=== PATIENT | male | born 1955 | race Caucasian/White ===

== ENCOUNTER 2017-07-02 12:17 | Observation (INO) | payer BC, OTHER ==
[2017-07-02] MEDS: ASPIRIN 325 MG TABLET PO ONE ×2 (12:50→12:55)
[2017-07-02] MEDS ORDERED: NITROGLYCERIN SUBLINGUAL 1/150 0.4 MG TAB SL ONE (12:50)
[2017-07-02] MEDS ORDERED: NITROGLYCERIN SUBLINGUAL 1/150 0.4 MG TAB ONE (12:51)
[2017-07-02] MEDS ORDERED: ASPIRIN 81 MG CHEWABLE TABLETS ONE (12:51)
[2017-07-02] MEDS: NITROGLYCERIN SUBLINGUAL 1/200 0.3 MG BTL SL ONE ×2 (12:55→13:04)
--- NOTE | 2017-07-02 12:59 | PDOC ---
History of Present Illness - General Chief Complaint: Chest Pain Stated Complaint: CHEST TIGHTNESS AND ELEVATED BLOOD PRESSURE Time Seen by Provider: 07/02/17 12:21 - History of Present Illness Initial Comments: 07/02/17 12:59 61 M with h/o DM, HTN, presenting to ER with chest pressure and SOB that began this morning. Pt reports taking his daily medications upon waking up and shortly afterwards began to feel pressure in his chest. He lied down, thinking it would pass, but the pressure persisted. He endorses SOB associated with the chest pressure as well. Denies orthopnea. Denies leg swelling. Pt denies F/C/ cough. No recent travel/immobilization. Pt reports +FH of ID (brother in 60s of ID). He has not had any recent cardiac work up. Last stress test was years ago. Past History - Past Medical History Allergies/Adverse Reactions: Allergies Allergy/AdvReac Type Severity Reaction Status Date / Time Penicillins Allergy Unknown Verified 07/02/17 12:19 Home Medications: Ambulatory Orders Amlodipine Besylate [Norvasc -] 10 mg PO DAILY 09/27/13 Glipizide 5 mg PO DAILY 09/27/13 Ramipril [Altace] 10 mg PO DAILY 09/27/13 Labetalol HCl 200 mg PO DAILY 07/02/17 Anemia: No Asthma: No Cancer: No Cardiac Disorders: No CVA: No COPD: No CHF: No DVT: No Dementia: No Diabetes: Yes GI Disorders: No Disorders: No HTN: Yes Hypercholesterolemia: Yes Kidney Stones: Yes Liver Disease: No Seizures: No Thyroid Disease: No - Surgical History Abdominal Surgery: Yes (VENTRAL HERNIA) Appendectomy: No Cardiac Surgery: No Cholecystectomy: No Lung Surgery: No Neurologic Surgery: No Orthopedic Surgery: No - Suicide/Smoking/Psychosocial Hx Smoking History: Former smoker Have you smoked in the past 12 months: No If you are a former smoker, when did you quit?: 25 years ago Information on smoking cessation initiated: No Hx Alcohol Use: Yes (occasional) Drug/Substance Use Hx: No Substance Use Type: None Cardiac Specific PMH - Complaint Specific PMHX Pacemaker: No Review of Systems - Review of Systems Comments:: 07/02/17 13:01 "GENERAL/CONSTITUTIONAL: No fever or chills. No weakness. HEAD, EYES, EARS, NOSE AND THROAT: No change in vision. No ear pain or discharge. No sore throat. CARDIOVASCULAR: +CP + SOB RESPIRATORY: No cough, wheezing, or hemoptysis. GASTROINTESTINAL: No nausea, vomiting, diarrhea or constipation. GENITOURINARY: No dysuria, frequency, or change in urination. MUSCULOSKELETAL: No joint or muscle swelling or pain. No neck or back pain. SKIN: No rash NEUROLOGIC: No headache, vertigo, loss of consciousness, or change in strength/ sensation. ENDOCRINE: No increased thirst. No abnormal weight change. HEMATOLOGIC/LYMPHATIC: No anemia, easy bleeding, or history of blood clots. ALLERGIC/IMMUNOLOGIC: No hives or skin allergy. " *Physical Exam - Vital Signs Last Vital Signs Temp Pulse Resp BP Pulse Ox 98.4 F 87 18 146/72 97 07/03/17 14:00 07/03/17 16:00 07/03/17 16:00 07/03/17 14:00 07/03/17 15:00 - Physical Exam Comments: 07/02/17 13:01 "GENERAL: Awake, alert, and fully oriented, in no acute distress HEAD: No signs of trauma EYES: PERRLA, EOMI, sclera anicteric, conjunctiva clear ENT: Auricles normal inspection, hearing grossly normal, nares patent, oropharynx clear without exudates. Moist mucosa NECK: Nontender, no stepoffs, Normal ROM, supple, no lymphadenopathy, JVD, or masses LUNGS: Breath sounds equal, clear to auscultation bilaterally. No wheezes, and no crackles HEART: Regular rate and rhythm, normal S1 and S2, no murmurs, rubs or gallops ABDOMEN: Soft, nontender, normoactive bowel sounds. No guarding, no rebound. No masses EXTREMITIES: Normal range of motion, no edema. No clubbing or cyanosis. No cords, erythema, or tenderness NEUROLOGICAL: Cranial nerves II through XII intact. 5/5 strength and sensation in all extremities, Normal speech, normal gait SKIN: Warm, Dry, normal turgor, no rashes or lesions noted. " Heart Score/ECG Review - History History: Moderately suspicious - Electrocardiogram EKG: Normal - Age Age: 45-65 - Risk Factors Risk Factors Heart Score: Yes Hx Hypertension, Yes Hx Diabetes, Yes Positive family hx of cardiac disease Based on the list above the patient has:: >/=3 risk factors or Hx atherosclerotic disease - Troponin Troponin: </= normal limit - Score Heart Score - Total: 4 - ECG Impressions Comment:: 07/02/17 13:02 NSR, no TOMÁS/STDs, no TWIs, axis wnl, intervals wnl, rate 108 ED Treatment Course - LABORATORY CBC & Chemistry Diagram: 07/03/17 07:32 07/03/17 07:32 - ADDITIONAL ORDERS Additional order review: 07/02/17 12:50 RBC 4.88 MCV 91.6 MCHC 33.4 RDW 14.6 MPV 8.5 D Neutrophils % 78.7 Lymphocytes % 16.3 Monocytes % 3.4 L Eosinophils % 0.8 Basophils % 0.8 - RADIOLOGY Radiology Studies Ordered: Category Date Time Status CHEST X-RAY PORTABLE* [RAD] Stat Radiology 07/02/17 12:57 Completed - Medications Given in the ED: ED Medications Discontinued Medications Generic Name Dose Route Start Last Admin Trade Name Freq PRN Reason Stop Dose Admin Acetaminophen 650 mg 07/02/17 18:10 07/03/17 06:32 Tylenol - PO 650 mg Q4H PRN Administration PAIN Amlodipine Besylate 5 mg 07/03/17 10:00 07/03/17 09:58 Norvasc - PO 5 mg DAILY ADELE Administration Aspirin 325 mg 07/02/17 12:46 07/02/17 12:55 Asa - PO 07/02/17 12:47 325 mg ONCE ONE Administration Insulin Aspart 1 vial 07/02/17 16:30 07/03/17 13:25 Novolog Vial Sliding Scale - SQ 4 unit ACHS ADELE Administration Protocol Labetalol HCl 100 mg 07/03/17 10:00 07/03/17 09:58 Normodyne - PO 100 mg DAILY ADELE Administration Lisinopril 40 mg 07/03/17 10:00 07/03/17 09:57 Prinivil PO 40 mg DAILY ADELE Administration Nitroglycerin 0.3 mg 07/02/17 12:47 07/02/17 13:04 Nitrostat - SL 07/02/17 12:48 Not Given ONCE ONE Nitroglycerin 0.4 mg 07/02/17 12:50 07/02/17 12:55 Nitrostat - SL 07/02/17 12:51 0.4 mg ONCE ONE Administration Regadenoson 0.4 mg 07/03/17 10:15 07/03/17 13:07 Lexiscan IVPUSH 07/03/17 10:16 Not Given ONCE ONE Medical Decision Making - Medical Decision Making 07/02/17 13:02 61 M with DM, HTN, family history of ID, presenting with CP and SOB. Concerning for ACS, though EKG with no ischemic changes. Also consider infectious process. Pt without clinical s/s of DVT. - Labs, trop, BNP - CXR - Aspirin 07/02/17 14:53 First trop negative. Spoke with pt and daughter. 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 Given risk factors and family history, will admit for serial troponins and cards consult. Case discussed in detail with admitting physician including history, physical exam and ancillary studies. Admitting physician has assumed care for the patient and will follow all pending diagnostics and complete the evaluation and treatment. *DC/Admit/Observation/Transfer Diagnosis at time of Disposition: Chest pain - Discharge Dispostion Disposition: HOME Condition at time of disposition: Stable Admit: Yes - Referrals - Patient Instructions - Post Discharge Activity - Attestations Physician Attestion: 07/02/17 15:35 I, Dr. Tommy Soler MD, attest that this document has been prepared under my direction and personally reviewed by me in its entirety. I further attest, that it accurately reflects all work, treatment, procedures and medical decision -making performed by me.
[2017-07-02 13:31] LABS: BASO % 0.8 % (0-2.0); EOS % 0.8 % (0-4.5); HEMATOCRIT 44.8 % (35.4-49); HEMOGLOBIN 14.9 GM/dl (11.7-16.9); LYMPH % 16.3 % (8-40); MCH 30.6 pg (25.7-33.7); MCHC 33.4 g/dl (32.0-35.9); MEAN CELL VOLUME 91.6 fl (80-96); MEAN PLT VOLUME 8.5 fl (7.5-11.1); MONO % 3.4 % (3.8-10.2); NEUT % 78.7 % (42.8-82.8); PLATELET COUNT 140 K/MM3 (134-434); RBC 4.88 M/mm3 (4.00-5.60); RDW 14.6 % (11.9-15.9)
[2017-07-02 13:37] LABS: ACTIVATED PTT 25.2 SECONDS (24.0-38.9)
[2017-07-02 13:38] LABS: ALBUMIN 4.5 g/dl (3.5-5.0); ALK PHOS 65 U/L (32-92); ANION GAP 11 (8-16); BILIRUBIN,TOTAL 0.8 mg/dl (0.2-1.0); BLOOD UREA NITROGEN 15 mg/dl (7-18); CHLORIDE 97 mmol/L (98-107); CO2 24 mmol/L (22-28); CREATININE 0.8 mg/dl (0.6-1.3); GLUCOSE,RANDOM 221 mg/dl (74-106); POTASSIUM 3.9 mmol/L (3.5-5.1); SGOT/AST 24 U/L (10-42); SGPT/ALT 17 U/L (10-40); SODIUM 132 mmol/L (136-145); TOT PROT 7.7 g/dl (6.4-8.3)
[2017-07-02 13:42] LABS: INR 1.1 (0.82-1.09); PROTHROMBIN TIME (PATIENT) 12.3 SEC (10.2-13.0)
--- NOTE | 2017-07-02 15:01 | EKG ---
Test Reason : Blood Pressure : / mmHG Vent. Rate : 108 BPM Atrial Rate : 108 BPM P-R Int : 180 ms QRS Dur : 088 ms QT Int : 356 ms P-R-T Axes : -01 027 -03 degrees QTc Int : 477 ms SINUS TACHYCARDIA OTHERWISE NORMAL ECG WHEN COMPARED WITH ECG OF 25-FEB-2014 18:46, NO SIGNIFICANT CHANGE WAS FOUND Confirmed by MADELYN NORWOOD MD ([id number]) on 07/02/2017 3:01:09 PM Referred By: AYALA GRANADOS Confirmed By:MADELYN NORWOOD MD
--- NOTE | 2017-07-02 15:27 | HP ---
CHIEF COMPLAINT: PCP: HISTORY OF PRESENT ILLNESS: ER course was notable for: (1) (2) (3) Recent Travel: PAST MEDICAL HISTORY: PAST SURGICAL HISTORY: Social History: Smoking: Alcohol: Drugs: Family History: Allergies Penicillins Allergy (Unknown, Verified 07/02/17 12:19) HOME MEDICATIONS: Home Medications Medication Instructions Recorded Amlodipine Besylate [Norvasc -] 5 mg PO DAILY 09/27/13 Glipizide 5 mg PO DAILY 09/27/13 Ramipril [Altace] 10 mg PO DAILY 09/27/13 Labetalol HCl 0 mg PO DAILY 07/02/17 REVIEW OF SYSTEMS CONSTITUTIONAL: Absent: fever, chills, diaphoresis, generalized weakness, malaise, loss of appetite, weight change HEENT: Absent: rhinorrhea, nasal congestion, throat pain, throat swelling, difficulty swallowing, mouth swelling, ear pain, eye pain, visual changes CARDIOVASCULAR: Absent: chest pain, syncope, palpitations, irregular heart rate, lightheadedness , peripheral edema RESPIRATORY: Absent: cough, shortness of breath, dyspnea with exertion, orthopnea, wheezing, stridor, hemoptysis GASTROINTESTINAL: Absent: abdominal pain, abdominal distension, nausea, vomiting, diarrhea, constipation, melena, hematochezia GENITOURINARY: Absent: dysuria, frequency, urgency, hesitancy, hematuria, flank pain, genital pain MUSCULOSKELETAL: Absent: myalgia, arthralgia, joint swelling, back pain, neck pain SKIN: Absent: rash, itching, pallor HEMATOLOGIC/IMMUNOLOGIC: Absent: easy bleeding, easy bruising, lymphadenopathy, frequent infections ENDOCRINE: Absent: unexplained weight gain, unexplained weight loss, heat intolerance, cold intolerance NEUROLOGIC: Absent: headache, focal weakness or paresthesias, dizziness, unsteady gait, seizure, mental status changes, bladder or bowel incontinence PSYCHIATRIC: Absent: anxiety, depression, suicidal or homicidal ideation, hallucinations. PHYSICAL EXAMINATION Vital Signs - 24 hr 07/02/17 07/02/17 07/02/17 12:18 13:04 14:49 Temperature 98 F Pulse Rate 111 H Pulse Rate [ 111 H 101 H Apical] Respiratory 16 17 18 Rate Blood Pressure 176/102 Blood Pressure 136/89 140/82 [Arm] O2 Sat by Pulse 98 96 98 Oximetry (%) GENERAL: Awake, alert, and fully oriented, in no acute distress. HEAD: Normal with no signs of trauma. EYES: Pupils equal, round and reactive to light, extraocular movements intact, sclera anicteric, conjunctiva clear. No lid lag. EARS, NOSE, THROAT: Ears normal, nares patent, oropharynx clear without exudates. Moist mucous membranes. NECK: Normal range of motion, supple without lymphadenopathy, JVD, or masses. LUNGS: Breath sounds equal, clear to auscultation bilaterally. No wheezes, and no crackles. No accessory muscle use. HEART: Regular rate and rhythm, normal S1 and S2 without murmur, rub or gallop. ABDOMEN: Soft, nontender, not distended, normoactive bowel sounds, no guarding, no rebound, no masses. No hepatomegaly or splenomegaly. MUSCULOSKELETAL: Normal range of motion at all joints. No bony deformities or tenderness. No CVA tenderness. UPPER EXTREMITIES: 2+ pulses, warm, well-perfused. No cyanosis. No clubbing. No peripheral edema. LOWER EXTREMITIES: 2+ pulses, warm, well-perfused. No calf tenderness. No peripheral edema. NEUROLOGICAL: Cranial nerves II-XII intact. Normal speech. Normal gait. PSYCHIATRIC: Cooperative. Good eye contact. Appropriate mood and affect. SKIN: Warm, dry, normal turgor, no rashes or lesions noted, normal capillary refill. Laboratory Results - last 24 hr 07/02/17 07/02/17 07/02/17 12:50 12:50 13:04 WBC 5.0 RBC 4.88 Hgb 14.9 Hct 44.8 MCV 91.6 MCH 30.6 MCHC 33.4 RDW 14.6 Plt Count 140 MPV 8.5 D Neutrophils % 78.7 Lymphocytes % 16.3 Monocytes % 3.4 L Eosinophils % 0.8 Basophils % 0.8 PT with INR 12.3 INR 1.10 PTT (Actin FS) 25.2 L Sodium Potassium Chloride Carbon Dioxide Anion Gap BUN Creatinine Creat Clearance w eGFR Random Glucose Calcium Total Bilirubin AST ALT Alkaline Phosphatase Creatine Kinase Troponin I < 0.03 L Total Protein Albumin 07/02/17 13:04 WBC RBC Hgb Hct MCV MCH MCHC RDW Plt Count MPV Neutrophils % Lymphocytes % Monocytes % Eosinophils % Basophils % PT with INR INR PTT (Actin FS) Sodium 132 L Potassium 3.9 Chloride 97 L Carbon Dioxide 24 D Anion Gap 11 BUN 15 D Creatinine 0.8 Creat Clearance w eGFR > 60 Random Glucose 221 H D Calcium 9.0 Total Bilirubin 0.8 D AST 24 D ALT 17 D Alkaline Phosphatase 65 Creatine Kinase 122 Troponin I Total Protein 7.7 Albumin 4.5 ASSESSMENT/PLAN:
[2017-07-02] MEDS: INSULIN SLIDING SCALE (NOVOLOG) 1 VIAL SQ SCH ×2 (17:16→23:25)
--- NOTE | 2017-07-02 18:07 | HP ---
Admitting History and Physical - Primary Care Physician PCP: Mane Andrew - Admission Chief Complaint: chest pain, sob History of Present Illness: This is a 61 year old male with pmhx of htn, hld who presented to the ED with worsening chest pressure and sob. 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 He reported lightheadedness and the beginning of left sided chest pressure. This morning around 7am the patient woke up he brushed his teeth and started to take his morning meds when the chest pressure worsened. He felt like something was pressing into his chest and radiating down his L arm and causing shortness of breath. This prompted him to drive himself to the ED. In the past he felt this pain and associated it with acid or gas pain. He stopped smoking 26years ago. Recent cataract surgery He denies trauma or excessive exercise. 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 He has been drinking vodka for ~30 years on and off 3-4 glasses, his last drink was last night, 2 glasses. He has never seen a rn surgery. He had echo awhile ago and was told it was unremarkable. History Source: Patient Limitations to Obtaining History: No Limitations - Past Medical History Cardiovascular: Yes: HTN Endocrine: Yes: Diabetes Mellitus - Past Surgical History Past Surgical History: Yes: Hernia Repair - Smoking History Smoking history: Former smoker Have you smoked in the past 12 months: No If you are a former smoker, when did you quit?: 25 years ago - Alcohol/Substance Use Hx Alcohol Use: Yes (occasional) History of Substance Use: reports: None - Social History Usual Living Arrangement: Yes: Alone ADL: Independent Occupation: [employer] Home Medications - Allergies Allergies/Adverse Reactions: Allergies Allergy/AdvReac Type Severity Reaction Status Date / Time Penicillins Allergy Unknown Verified 07/02/17 12:19 - Home Medications Home Medications: Ambulatory Orders Amlodipine Besylate [Norvasc -] 10 mg PO DAILY 09/27/13 Glipizide 5 mg PO DAILY 09/27/13 Ramipril [Altace] 10 mg PO DAILY 09/27/13 Labetalol HCl 200 mg PO DAILY 07/02/17 Family Disease History - Family Disease History Family Disease History: Heart Disease: Mother (mi, cABG), CA: Father (lung ) Review of Systems - Review of Systems Constitutional: reports: Diaphoresis Eyes: reports: No Symptoms HENT: reports: No Symptoms Neck: reports: No Symptoms Cardiovascular: reports: Chest Pain, Shortness of Breath Respiratory: reports: SOB Gastrointestinal: reports: No Symptoms Genitourinary: reports: No Symptoms Musculoskeletal: reports: No Symptoms Integumentary: reports: No Symptoms Neurological: reports: No Symptoms Endocrine: reports: No Symptoms Hematology/Lymphatic: reports: No Symptoms Psychiatric: reports: No Symptoms Physical Examination Vital Signs: Vital Signs Temperature 98.4 F 07/02/17 17:02 Pulse Rate 101 H 07/02/17 17:02 Respiratory Rate 20 07/02/17 17:02 Blood Pressure 162/86 07/02/17 17:02 O2 Sat by Pulse Oximetry (%) 97 07/02/17 17:02 Constitutional: Yes: Well Nourished Eyes: Yes: Conjunctiva Clear HENT: Yes: WNL Neck: Yes: Supple Cardiovascular: Yes: Regular Rate and Rhythm, S1, S2 Respiratory: Yes: Regular, CTA Bilaterally Gastrointestinal: Yes: Normal Bowel Sounds, Soft Renal/: Yes: WNL Breast(s): Yes: WNL Musculoskeletal: Yes: WNL Extremities: Yes: WNL Edema: No Wound/Incision: Yes: Well Approximated Neurological: Yes: Alert, Oriented, Cran Nerves II-XII Intact Psychiatric: Yes: Alert, Oriented Labs: CBC, BMP 07/02/17 12:50 07/02/17 13:04 Imaging - Results X-ray: Report Reviewed EKG: Report Reviewed Problem List - Problems (1) Chest pain Code(s): R07.9 - CHEST PAIN, UNSPECIFIED Assessment/Plan Assessment: 61 year old male admitted with chest pain Plan: 1. Chest pain - ASA 325mg given in ED - Serial cardiac enzymes - ECHO - NPO for possible stress in AM - Telemetry monitoring - Cardiology consult 2. HTN - Continue amlodipine - Continue lisinopril - Continue labetaolol 3. DM II - ISS, BGM ACHS Dispo: Daughter [phone], Helen Visit type - Emergency Visit Emergency Visit: Yes ED Registration Date: 07/02/17 Care time: The patient presented to the Emergency Department on the above date and was hospitalized for further evaluation of their emergent condition. - New Patient This patient is new to me today: Yes Date on this admission: 07/03/17 - Critical Care Critical Care patient: No
[2017-07-02 18:17] VITALS: BMI 32.3
[2017-07-02] MEDS: ACETAMINOPHEN 325 MG TABLET (FP) PO PRN (18:54)
[2017-07-03] MEDS: INSULIN SLIDING SCALE (NOVOLOG) 1 VIAL SQ SCH ×2 (06:30→13:25)
[2017-07-03] MEDS: ACETAMINOPHEN 325 MG TABLET (FP) PO PRN (06:32)
[2017-07-03 08:36] LABS: BASO % 0.8 % (0-2.0); EOS % 2.6 % (0-4.5); HEMATOCRIT 45.2 % (35.4-49); HEMOGLOBIN 15.3 GM/dl (11.7-16.9); LYMPH % 28.9 % (8-40); MCHC 33.8 g/dl (32.0-35.9); MEAN CELL VOLUME 91.5 fl (80-96); MEAN PLT VOLUME 7.9 fl (7.5-11.1); MONO % 10.1 % (3.8-10.2); NEUT % 57.6 % (42.8-82.8); PLATELET COUNT 137 K/MM3 (134-434); RBC 4.94 M/mm3 (4.00-5.60); WHITE BLOOD COUNT 4.2 K/mm3 (4.0-10.8)
[2017-07-03 08:39] LABS: ALBUMIN 4.4 g/dl (3.5-5.0); ALK PHOS 62 U/L (32-92); ANION GAP 10 (8-16); BILIRUBIN,TOTAL 1.6 mg/dl (0.2-1.0); BLOOD UREA NITROGEN 17 mg/dl (7-18); CALCIUM 9.1 mg/dl (8.4-10.2); CHLORIDE 95 mmol/L (98-107); CO2 29 mmol/L (22-28); CREATININE 0.9 mg/dl (0.6-1.3); GLUCOSE,RANDOM 109 mg/dl (74-106); MAGNESIUM 1.8 mg/dL (1.8-2.4); POTASSIUM 3.6 mmol/L (3.5-5.1); SGOT/AST 19 U/L (10-42); SGPT/ALT 12 U/L (10-40); SODIUM 134 mmol/L (136-145); TOT PROT 7.4 g/dl (6.4-8.3)
[2017-07-03 08:45] LABS: CHOLESTEROL 264 mg/dl; HDL CHOLESTEROL 126 mg/dl (29-89); LDL CHOLESTEROL (ONLY DFH) 112 mg/dl; TRIGLYCERIDES 132 mg/dl (35-160)
[2017-07-03] MEDS ORDERED: LABETALOL HCL 100 MG TABLET (FP) PO SCH (10:00)
[2017-07-03] MEDS ORDERED: LISINOPRIL 20 MG TABLET (FP) PO SCH (10:00)
[2017-07-03] MEDS ORDERED: amLODIPine BESYLATE 5 MG TABLET (FP) PO SCH (10:00)
[2017-07-03] MEDS ORDERED: REGADENOSON 0.4 MG/5 ML PRE-FILLED SYRINGE IVPUSH ONE (10:15)
[2017-07-03] MEDS ORDERED: INSULIN (NOVOLOG) ASPART 100 UNITS/ML 10ML VIAL ONE (13:23)
--- NOTE | 2017-07-03 13:25 | CON.CARD ---
Cardiology Consult (text) - Consultation Consultation Note: cc: cp hpi: 61 m hx htn, dm here with cp. Yesterday was at rest and noticed mild central chest pressure with some radiation to left arm. Intermittent during the day. No sob, palps, dizzy, loc, pnd, orthopnea, le edema, anginal sxs. No hx hrt dz. Feeling better this AM, no further cp. pmh: per hpi psh: cataracts, hernia social: ex tob fam: bro mi 60s ros: per hpi; no nvd, fever, cough, muscle pain, mejia, vision changes, gib, hematuria, dysuria meds: Home Medications Medication Instructions Recorded Amlodipine Besylate [Norvasc -] 10 mg PO DAILY 09/27/13 Glipizide 5 mg PO DAILY 09/27/13 Ramipril [Altace] 10 mg PO DAILY 09/27/13 Labetalol HCl 200 mg PO DAILY 07/02/17 pe: Vital Signs Period Temp Pulse Resp BP Sys/Vega Pulse Ox Last 24 Hr 97.9 F-98.6 F 86-104 16-20 140-172/82-94 96-99 nad no jvd rrr s1s2 no mrg cta bl nl eff aaox3 no le e/c/c abd nt nd pos bs no jaundice diaphoresis pos dp pt no carotid bruits Laboratory Last Values WBC 4.2 K/mm3 (4.0-10.8) 07/03/17 07:32 RBC 4.94 M/mm3 (4.00-5.60) 07/03/17 07:32 Hgb 15.3 GM/dl (11.7-16.9) 07/03/17 07:32 Hct 45.2 % (35.4-49) 07/03/17 07:32 MCV 91.5 fl (80-96) 07/03/17 07:32 MCH 31.0 pg (25.7-33.7) 07/03/17 07:32 MCHC 33.8 g/dl (32.0-35.9) 07/03/17 07:32 RDW 14.0 % (11.9-15.9) 07/03/17 07:32 Plt Count 137 K/MM3 (134-434) 07/03/17 07:32 MPV 7.9 fl (7.5-11.1) 07/03/17 07:32 Neutrophils % 57.6 % (42.8-82.8) D 07/03/17 07:32 Lymphocytes % 28.9 % (8-40) D 07/03/17 07:32 Monocytes % 10.1 % (3.8-10.2) D 07/03/17 07:32 Eosinophils % 2.6 % (0-4.5) D 07/03/17 07:32 Basophils % 0.8 % (0-2.0) 07/03/17 07:32 PT with INR 12.3 SEC (10.2-13.0) 07/02/17 13:04 INR 1.10 (0.82-1.09) 07/02/17 13:04 PTT (Actin FS) 25.2 SECONDS (24.0-38.9) L 07/02/17 13:04 Sodium 134 mmol/L (136-145) L 07/03/17 07:32 Potassium 3.6 mmol/L (3.5-5.1) 07/03/17 07:32 Chloride 95 mmol/L (98-107) L 07/03/17 07:32 Carbon Dioxide 29 mmol/L (22-28) H D 07/03/17 07:32 Anion Gap 10 (8-16) 07/03/17 07:32 BUN 17 mg/dl (7-18) 07/03/17 07:32 Creatinine 0.9 mg/dl (0.6-1.3) 07/03/17 07:32 Creat Clearance w eGFR > 60 (>60) 07/03/17 07:32 POC Glucometer 94 UNITS (80-120) 07/03/17 06:29 Random Glucose 109 mg/dl (74-106) H D 07/03/17 07:32 Calcium 9.1 mg/dl (8.4-10.2) 07/03/17 07:32 Magnesium 1.8 mg/dL (1.8-2.4) 07/03/17 07:32 Total Bilirubin 1.6 mg/dl (0.2-1.0) H D 07/03/17 07:32 AST 19 U/L (10-42) D 07/03/17 07:32 ALT 12 U/L (10-40) D 07/03/17 07:32 Alkaline Phosphatase 62 U/L (32-92) 07/03/17 07:32 Creatine Kinase 122 IU/L (39-308) 07/02/17 13:04 Troponin I < 0.02 ng/ml (0.00-0.05) 07/03/17 01:20 B-Natriuretic Peptide 62.11 pg/ml (5-125) 07/02/17 13:04 Total Protein 7.4 g/dl (6.4-8.3) 07/03/17 07:32 Albumin 4.4 g/dl (3.5-5.0) 07/03/17 07:32 Triglycerides 132 mg/dl (35-160) 07/03/17 07:32 Cholesterol 264 mg/dl 07/03/17 07:32 Total LDL Cholesterol 112 mg/dl 07/03/17 07:32 HDL Cholesterol 126 mg/dl (29-89) H 07/03/17 07:32 cxr: clear lungs ecg: sr, nl intervals, no ischemic changes echo 06/2017: nl lv/rv, no sig valve path, nl rvsp a/p: 61 m hx htn, dm here with cp. cp: -resolved -trop negx3, ecg and echo unremarkable, does not appear to be acs -given risk factors, will send for mibi today. htn: -cont home meds dm: -cont home po meds. if nuclear stress test benign then ok for dc today from cardiac pov.
[2017-07-03 14:12] VITALS: BP 146/72; TEMP 98.4
[2017-07-03 15:50] LABS: INR 1.04 (0.82-1.09); PROTHROMBIN TIME (PATIENT) 11.6 SEC (10.2-13.0)
[2017-07-03 16:14] VITALS: PULSE 87
== END 2017-07-03 16:12 | disposition home or self-care (01) ==
LOC: FER 12:17 → FM/S 16:16
PROVIDERS: ADMIT Internal Medicine; ATTEND Nurse Practitioner Acute Care
PROC: 3E013VG Introduction of Insulin into Subcutaneous Tissue, Percutaneous Approach (ICD-10-PCS; principal; 2017-07-02)
DX: R07.9 Chest pain, unspecified (principal); I10 Essential (primary) hypertension; E11.9 Type 2 diabetes mellitus without complications; E78.5 Hyperlipidemia, unspecified; Z88.0 Allergy status to penicillin; Z79.84 Long term (current) use of oral hypoglycemic drugs; Z87.442 Personal history of urinary calculi; Z87.891 Personal history of nicotine dependence
CPT/HCPCS: 36415; 71045-TC; 78452-TC; 80053; 80061; 82550; 82962; 83735; 83880; 84443; 84484; 85025; 85610; 85730; 93005; 93017; 93306-TC; 99285-25; A9502; G0378

== ENCOUNTER 2019-12-06 19:24 | Emergency (ER) | payer BC, OTHER ==
[2019-12-06 19:39] VITALS: BMI 33.7
--- NOTE | 2019-12-06 19:39 | PDOC ---
Rapid Medical Evaluation Chief Complaint: Injury Time Seen by Provider: 12/06/19 19:36 Medical Evaluation: Allergies Allergy/AdvReac Type Severity Reaction Status Date / Time Penicillins Allergy Unknown Verified 07/02/17 12:19 12/06/19 19:36 64 year old male reports that he slipped and fell hit right rib area patient reports that he fell backwards as he was coming up. denies head injury. currently not on anticoagulants. PMHX: dm, hypertension Last Vital Signs Temp Pulse Resp BP Pulse Ox 98.4 F 109 H 20 169/103 H 96 12/06/19 19:35 12/06/19 19:35 12/06/19 19:35 12/06/19 19:35 12/06/19 19:35 \A:rib pain P: xray patient to the er for further management of care. 12/06/19 19:40 Discharge Disposition - Diagnosis Rib pain on right side - Referrals - Patient Instructions - Post Discharge Activity
[2019-12-06] MEDS ORDERED: ACETAMINOPHEN 500 MG TABLET (FP) PO ONE (19:40)
--- NOTE | 2019-12-06 20:15 | PDOC ---
History of Present Illness - General Chief Complaint: Injury Stated Complaint: FALL Time Seen by Provider: 12/06/19 19:36 History Source: Patient Exam Limitations: No Limitations - History of Present Illness Initial Comments: 12/06/19 20:09 64 year old male with pmhx of DM HTN presenting to the ED after a slip and fall in the shower last night. pt states he lost his balance and fell hitting his chest and back. pt adamantly denies head truama, LOC and AC use. Pt is currently complaining of right sided rib and back pain worse with inspiration. Pt states he took 2 advil with mild relief of symptoms. Feels like his normal self otherwise but came because his daughter urged him too. Pt otherwise denies: fevers, chills, syncope, lightheadedness, dizziness, headaches, changes in vision, changes in hearing, neck pain, chest pain, shortness of breath, palpitations, abdominal pain, nausea, vomiting, diarrhea, constipation, melena, hematochezia, dysuria, hematuria. Past History - Medical History Allergies/Adverse Reactions: Allergies Allergy/AdvReac Type Severity Reaction Status Date / Time Penicillins Allergy Unknown Verified 07/02/17 12:19 Home Medications: Ambulatory Orders Amlodipine Besylate [Norvasc -] 10 mg PO DAILY 09/27/13 Glipizide 5 mg PO DAILY 09/27/13 Ramipril [Altace] 10 mg PO DAILY 09/27/13 Labetalol HCl 200 mg PO DAILY 07/02/17 Anemia: No Asthma: No Cancer: No Cardiac Disorders: No CVA: No COPD: No CHF: No DVT: No Dementia: No Diabetes: Yes GI Disorders: No Disorders: No HTN: Yes Hypercholesterolemia: Yes Kidney Stones: Yes Liver Disease: No Seizures: No Thyroid Disease: No - Surgical History Abdominal Surgery: Yes (VENTRAL HERNIA) Appendectomy: No Cardiac Surgery: No Cholecystectomy: No Lung Surgery: No Neurologic Surgery: No Orthopedic Surgery: No - Psycho-Social/Smoking History Smoking History: Never smoked Have you smoked in the past 12 months: No If you are a former smoker, when did you quit?: 25 years ago - Substance Abuse Hx (Audit-C & DAST Scrn) How often the patient has a drink containing alcohol: Never Score: In Men: 4 or > Positive; In Women: 3 or > Positive: 0 Screen Result (Pos requires Nsg. Audit-10AR): Negative Review of Systems - Review of Systems Constitutional: No: Fever, Weakness HEENTM: No: Blurred Vision, Double Vision Respiratory: No: Shortness of Breath Cardiac (ROS): No: Chest Pain ABD/GI: No: Abdominal Distended, Nausea, Vomiting : No: Dysuria, Hematuria Musculoskeletal: Yes: Back Pain, Muscle Pain Integumentary: No: Bruising, Erythema Neurological: No: Headache, Numbness, Seizure, Tingling *Physical Exam - Vital Signs Last Vital Signs Temp Pulse Resp BP Pulse Ox 98.4 F 109 H 20 169/103 H 96 12/06/19 19:35 12/06/19 19:35 12/06/19 19:35 12/06/19 19:35 12/06/19 19:35 - Physical Exam 12/06/19 20:13 Gen: AAOx 3, no acute distress, comfortable, no signs of respiratory distress HENT: atraumatic, normocephalic with no laceration or contusion. Nasal mucosa without erythema. Oropharynx without erythema or exudates. Mucous membranes moist. EYES: PERRL, EOM intact, conjunctiva pink NECK: supple; trachea midline; no JVD, no lymphadenopathy, or thyromegaly CV: RRR no murmurs, gallops, or rubs. CHEST: CTA b/l no wheezing, rales or rhonchi, ttp over right midaxillary line over ribs 5-6 without ecchymosis or abrasion ABD: +BS/ND. no TTP; soft, no rebound, no guarding, no CVAT no stone lozano or cullens sign. Back: TTP over right sided ribs 6-7 without ecchymosis EXTREMITY: no cyanosis or erythema. 2+ dorsalis pedis, posterior tibial, and radial pulse. No pedal edema; no calf swelling or tenderness SKIN: no rash, warm and dry, no diaphoresis HEME: no purpura or ecchymosis NEURO: normal speech, CN II-XII intact, sensation intact, normal gait, no cerebellar deficits MS: 5/5 strength in all extremities, FROM intact in all extremities. Medical Decision Making - Medical Decision Making 64 year old male s/p slip and fall complaining of right sided rib pain. XRs ordered by [facility]ME and completed will get CT chest abdomen and pelvis to further evaluate for internal injury, UA to assess for hematuria and will give tylenol for pain XR shows displaced fracture of 8th rib without pnx or any other pathology. Pt signed out pending labs UA and CT scan results. Discharge - Discharge Information Problems reviewed: Yes Clinical Impression/Diagnosis: Rib pain on right side - Follow up/Referral Referrals: Mane Andrew MD [Primary Care Provider] - - Patient Discharge Instructions - Post Discharge Activity
[2019-12-06] MEDS ORDERED: ACETAMINOPHEN 500 MG TABLET (FP) ONE (20:16)
[2019-12-06 22:12] LABS: EPI CELLS 3 /uL (0-25.1); HYALINE CASTS 1 /uL (0-3.1); PH,URINE 5.5 (5.0-8.0); URINE APPEARANCE CLEAR; URINE BACTERIA 110 /uL (0-1359); URINE BILIRUBIN NEGATIVE (NEGATIVE); URINE COLOR YELLOW; URINE GLUCOSE (UA) 3+ (NEGATIVE); URINE KETONE 2+ (NEGATIVE); URINE LEUK ESTERASE NEGATIVE (NEGATIVE); URINE NITRITE NEGATIVE (NEGATIVE); URINE PROTEIN 2+ (NEGATIVE); URINE RBC 8 /uL (0-23.9); URINE WBC 3 /uL (0-25.8)
[2019-12-06 22:16] LABS: BASO % 0.9 % (0-2.0); EOS % 0.1 % (0-4.5); LYMPH % 10.4 % (8-40); MCH 32.9 pg (25.7-33.7); MCHC 34.8 g/dl (32.0-35.9); MEAN CELL VOLUME 94.6 fl (80-96); MEAN PLT VOLUME 8.1 fl (7.5-11.1); NEUT % 83.6 % (42.8-82.8); PLATELET COUNT 124 K/MM3 (134-434); RBC 4.55 M/mm3 (4.00-5.60)
--- NOTE | 2019-12-06 22:34 | PDOC ---
*Physical Exam - Vital Signs Last Vital Signs Temp Pulse Resp BP Pulse Ox 98.4 F 109 H 20 169/103 H 96 12/06/19 19:35 12/06/19 19:35 12/06/19 19:35 12/06/19 19:35 12/06/19 19:35 <Michelle Arellano - Last Filed: 12/07/19 00:38> - Vital Signs Last Vital Signs Temp Pulse Resp BP Pulse Ox 98.4 F 109 H 20 169/103 H 96 12/06/19 19:35 12/06/19 19:35 12/06/19 19:35 12/06/19 19:35 12/06/19 19:35 <Yancy Leyva - Last Filed: 12/07/19 00:42> ED Treatment Course - LABORATORY CBC & Chemistry Diagram: 12/06/19 22:05 12/06/19 22:05 - ADDITIONAL ORDERS Additional order review: Laboratory Results 12/06/19 21:40 Urine Color Yellow Urine Appearance Clear Urine pH 5.5 Ur Specific Myrtle 1.026 Urine Protein 2+ H Urine Glucose (UA) 3+ H Urine Ketones 2+ H Urine Blood Negative Urine Nitrite Negative Urine Bilirubin Negative Urine Urobilinogen 1.0 Ur Leukocyte Esterase Negative Urine WBC (Auto) 3 Urine RBC (Auto) 8 Urine Casts (Auto) 1 U Epithel Cells (Auto) 3 Urine Bacteria (Auto) 110 12/06/19 22:05 RBC 4.55 MCV 94.6 MCHC 34.8 RDW 16.0 H MPV 8.1 Neutrophils % 83.6 H Lymphocytes % 10.4 D Monocytes % 5.0 Eosinophils % 0.1 D Basophils % 0.9 - RADIOLOGY Radiology Studies Ordered: Category Date Time Status CHEST PA & LAT [RAD] Stat Radiology 12/06/19 19:39 Completed RIBS RIGHT SIDE [RAD] Stat Radiology 12/06/19 19:39 Completed - Medications Given in the ED: ED Medications Discontinued Medications Generic Name Dose Route Start Last Admin Trade Name Freq PRN Reason Stop Dose Admin Acetaminophen 1,000 mg 12/06/19 19:40 12/06/19 20:21 Tylenol - PO 12/06/19 19:41 1,000 mg ONCE ONE Administration <Michelle Arellano - Last Filed: 12/07/19 00:38> - LABORATORY CBC & Chemistry Diagram: 12/06/19 22:05 12/06/19 22:05 - ADDITIONAL ORDERS Additional order review: Laboratory Results 12/06/19 12/06/19 12/06/19 22:05 22:05 21:40 PT with INR 12.30 INR 1.04 PTT (Actin FS) 30.2 Sodium 139 Potassium 4.6 Chloride 99 Carbon Dioxide 28 Anion Gap 13 BUN 13.7 Creatinine 1.1 Est GFR (CKD-EPI)AfAm 80.65 Est GFR (CKD-EPI)NonAf 69.58 Random Glucose 179 H Calcium 9.3 Total Bilirubin 1.1 H AST 38 H ALT 42 Alkaline Phosphatase 75 Total Protein 8.2 Albumin 4.5 Urine Color Yellow Urine Appearance Clear Urine pH 5.5 Ur Specific Myrtle 1.026 Urine Protein 2+ H Urine Glucose (UA) 3+ H Urine Ketones 2+ H Urine Blood Negative Urine Nitrite Negative Urine Bilirubin Negative Urine Urobilinogen 1.0 Ur Leukocyte Esterase Negative Urine WBC (Auto) 3 Urine RBC (Auto) 8 Urine Casts (Auto) 1 U Epithel Cells (Auto) 3 Urine Bacteria (Auto) 110 12/06/19 22:05 RBC 4.55 MCV 94.6 MCHC 34.8 RDW 16.0 H MPV 8.1 Neutrophils % 83.6 H Lymphocytes % 10.4 D Monocytes % 5.0 Eosinophils % 0.1 D Basophils % 0.9 - Medications Given in the ED: ED Medications Discontinued Medications Generic Name Dose Route Start Last Admin Trade Name Freq PRN Reason Stop Dose Admin Acetaminophen 1,000 mg 12/06/19 19:40 12/06/19 20:21 Tylenol - PO 12/06/19 19:41 1,000 mg ONCE ONE Administration <Yancy Leyva - Last Filed: 12/07/19 00:42> Medical Decision Making - Medical Decision Making 12/07/19 00:38 CTAP/ chest negative: will d/c home. 12/07/19 00:40 right 8th and 9th rib fracture <Michelle Arellano - Last Filed: 12/07/19 00:38> Discharge - Discharge Information Problems reviewed: Yes <Michelle Arellano - Last Filed: 12/07/19 00:38> - Discharge Information Problems reviewed: Yes <Yancy Leyva - Last Filed: 12/07/19 00:42> - Discharge Information Clinical Impression/Diagnosis: Rib pain on right side Closed rib fracture Qualifiers: Encounter type: initial encounter Rib fracture type: multiple ribs Laterality: right Qualified Code(s): S22.41XA - Multiple fractures of ribs, right side, initial encounter for closed fracture Disposition: HOME - Additional Discharge Information Prescriptions: Ibuprofen 400 mg PO QID PRN #20 tablet PRN Reason: Pain - Follow up/Referral Referrals: Mane Andrew MD [Primary Care Provider] - - Patient Discharge Instructions Patient Printed Discharge Instructions: DI for Rib Fracture Additional Instructions: Use the incentive spirometer You may take Tylenol or ibuprofen as needed for pain. Follow-up with your doctor Return to the emergency room for any worsening symptoms - Post Discharge Activity Work/Back to School Note: Back to Work
[2019-12-06 22:45] LABS: INR 1.04 (0.83-1.09); PROTHROMBIN TIME (PATIENT) 12.3 SEC (9.7-13.0)
[2019-12-06 22:48] LABS: ACTIVATED PTT 30.2 SECONDS (25.2-36.5)
[2019-12-06 22:51] LABS: ALBUMIN 4.5 g/dl (3.4-5.0); BILIRUBIN,TOTAL 1.1 mg/dL (0.2-1); BLOOD UREA NITROGEN 13.7 mg/dL (7-18); CALCIUM 9.3 mg/dL (8.5-10.1); CREATININE 1.1 mg/dL (0.55-1.3); POTASSIUM 4.6 mmol/L (3.5-5.1); TOT PROT 8.2 g/dl (6.4-8.2)
[2019-12-07 01:21] VITALS: BP 186/103; PULSE 103; TEMP 98.2
== END 2019-12-07 01:05 | disposition home or self-care (01) ==
LOC: JER 19:24
DX: R07.81 Pleurodynia (principal)
CPT/HCPCS: 36415; 71046-TC-FY; 71101-TC-RT-FY; 71260-TC; 74177-TC; 80053; 81003; 85025; 85610; 85730; 99285-25; Q9967

== ENCOUNTER 2020-11-05 15:28 | Emergency (ER) | payer OTHER ==
[2020-11-05 15:47] VITALS: BP 118/66; PULSE 95; TEMP 98.6; BMI 33.0
[2020-11-05] MEDS ORDERED: IBUPROFEN 600 MG TABLET (FP) PO ONE ×2 (16:13→16:20)
== END 2020-11-05 17:08 | disposition home or self-care (01) ==
LOC: JERFT 15:28
DX: R07.81 Pleurodynia (principal)
CPT/HCPCS: 71046-TC-FY; 71101-TC-RT-FY; 72070-TC-FY; 99285-25